=== PATIENT | male | born 1995 | race Caucasian/White ===

== ENCOUNTER 2018-07-26 04:08 | Emergency (ER) | payer SELFPAY ==
[~2018-07-26] VITALS: Ht 172.7 cm; Wt 104.3 kg
--- NOTE | 2018-07-26 04:27 | ED General ---
General Stated Complaint: INTOXICATED Source of Information: Patient Exam Limitations: No Limitations (PIERCE GARCIA MD) History of Present Illness Date Seen by Provider: Jul 26, 2018 Time Seen by Provider: 04:10 Initial Comments Here by EMS with report of being intoxicated. Patient admits to drinking quite a bit tonight at the bar. Apparently he had enough and decided to go outside. He fell asleep outside. He was found by some people who work morning to take him home but he couldn't tell them where he lived. Patient is actually from [place], [place] and knows the address to his house they are. He admits to drinking and states that he did not get injured in is not hurting anywhere but is intoxicated. Apparently EMS was called and police requested transport for evaluation. He denies any complaints. He has his phone with him that needs to be charged and states that he can call a friend when his phone works. Denies any pain or other concerns currently. Timing/Duration: 1 Hour Severity: Moderate Associated Systoms: No Nausea/Vomiting, No Shortness of Air, No Weakness; Other (intoxicated) (PIERCE GARCIA MD) Allergies and Home Medications Allergies Coded Allergies: Iodine and Iodide Containing Produc (Verified Allergy, Unknown, 07/26/18) Patient Home Medication List Home Medication List Reviewed: Yes (PIERCE GARCIA MD) Review of Systems Review of Systems Constitutional: see HPI; No chills, No fever, No weakness EENTM: no symptoms reported Respiratory: no symptoms reported Cardiovascular: no symptoms reported Gastrointestinal: no symptoms reported Musculoskeletal: No back pain, No muscle pain, No neck pain Psychiatric/Neurological: Denies Headache, Denies Numbness, Denies Weakness ( PIERCE GARCIA MD) Past Aznnsdu-Bwvcqa-Nkcybb Hx Past Med/Social Hx: Reviewed Nursing Past Med/Soc Hx (PIERCE GARCIA MD) Patient Social History Alcohol Use: Occasionally Uses Type Used: Smokeless Tobacco Recent Foreign Travel: No Contact w/Someone Who Travel: No (PIERCE GARCIA MD) Past Medical History Surgeries: Yes Abdominal (hernia repair) Respiratory: No Cardiac: No Neurological: No Genitourinary: No Gastrointestinal: Yes Abdominal Hernia Musculoskeletal: No (PIERCE GARCIA MD) Family Medical History Reviewed Nursing Family Hx (PIERCE GARCIA MD) Physical Exam Vital Signs Vital Signs - First Documented 07/26/18 04:08 Temp 98.0 Pulse 110 Resp 20 B/P (MAP) 144/104 (117) Pulse Ox 100 O2 Delivery Room Air (BRAXTON MORELAND) Vital Signs Capillary Refill : (PIERCE GARCIA MD) Height, Weight, BMI Height: '" Weight: lbs. oz. kg; BMI Method: General Appearance: No Apparent Distress, WD/WN HEENT: PERRL/EOMI, Pharynx Normal, Other (no head injury, abrasions or ecchymosis noted to any part of the head or face.) Neck: Full Range of Motion, Normal Inspection, Non Tender, Supple Respiratory: Lungs Clear, Normal Breath Sounds Cardiovascular: Regular Rate, Rhythm, No Murmur Gastrointestinal: Non Tender, Soft Extremity: Normal Range of Motion, Non Tender Neurologic/Psychiatric: Alert, Oriented x3, Other (slurred speech but answers questions appropriately.) Skin: Normal Color, Warm/Dry (PIERCE GARCIA MD) Progress/Results/Core Measures Suspected Sepsis SIRS Temperature: Pulse: Respiratory Rate: Blood Pressure / Mean: (PIERCE GARCIA MD) Results/Orders Vital Signs/I&O 07/26/18 04:08 Temp 98.0 Pulse 110 Resp 20 B/P (MAP) 144/104 (117) Pulse Ox 100 O2 Delivery Room Air (BRAXTON MORELAND) Vital Signs/I&O Capillary Refill : (PIERCE GARCIA MD) Progress Note : Progress Note Seen and evaluated. No obvious injuries noted. Patient admits to alcohol use tonight and intoxication but denies drugs. Otherwise acting appropriate. We will monitor him and charged his phone to see if we can get a friend called to pick him up. Patient agrees to the plan. 0600: Resting peacefully. Patient awakes to verbal. Still awaiting transportation (PIERCE GARCIA MD) Progress Note : Time: 07:52 Progress Note I saw and examined the patient. His history given is consistent with a history and physical exam recorded by Dr. Garcia. I agree with the previous note. Patient is awake enough is alert enough to talk to me answer all my questions remembers where he was at last night he was doing. He denies any physical injury or pain now. He says he was waiting for us to give him to go ahead and call for a ride and so we are going him call for a ride home to sleep this off. (BRAXTON MORELAND) Departure Impression Primary Impression: Alcohol intoxication Qualified Codes: F10.920 - Alcohol use, unspecified with intoxication, uncomplicated Disposition: 01 HOME, SELF-CARE Condition: Improved Departure-Patient Inst. Decision time for Depature: 06:06 (PIERCE GARCIA MD) Decision time for Depature: 08:18 (BRAXTON MORELAND) Patient Instructions: ALCOHOL AND SUBSTANCE ABUSE, Effects of Alcohol on Your Health Add. Discharge Instructions: Drink plenty of fluids and eat a normal diet. Follow-up with your Dr. in a few days for recheck as needed. You should avoid alcohol use. Return for worse pain, fever, vomiting, weakness, breathing problems or other concerns as needed. PIERCE GARCIA MD Jul 26, 2018 04:27 BRAXTON MORELAND Jul 26, 2018 07:57
[2018-07-26 08:24] VITALS: BP 107/68
== END 2018-07-26 08:27 | disposition home or self-care (01) ==
LOC: ER 04:09
DX: F10.129 Alcohol abuse with intoxication, unspecified (principal); Z91.041 Radiographic dye allergy status; Z98.890 Other specified postprocedural states
CPT/HCPCS: 99283

== ENCOUNTER 2019-01-17 03:22 | Emergency (ER) | payer BC, OTHER ==
[~2019-01-17] VITALS: Ht 172.7 cm; Wt 108.9 kg
--- NOTE | 2019-01-17 04:18 | ED General ---
General Stated Complaint: ADDITIONAL TESTING,HERNIA Source of Information: Patient, Police Exam Limitations: No Limitations History of Present Illness Date Seen by Provider: Jan 17, 2019 Time Seen by Provider: 03:51 Initial Comments The patient presents to ER by police with chief complaint that he was picked up a DUI and requested to have a blood alcohol level test drawn. He's not having any pain nausea fevers chills. His last drink was sometime around 1:00. He said he had 4 beers before going to the bar and 2-3 more beers while he was at the bar. He drinks regularly. He does not smoke but he does use DIP. He denies any recreational drugs. He is not having any particular symptoms just wants confirmatory lab to prove his blood level. Allergies and Home Medications Allergies Coded Allergies: Iodine and Iodide Containing Produc (Verified Allergy, Unknown, 07/26/18) Patient Home Medication List Home Medication List Reviewed: Yes Review of Systems Review of Systems Constitutional: No chills, No fever EENTM: No ear discharge, No hearing loss Respiratory: No cough, No orthopnea Cardiovascular: No chest pain, No palpitations Gastrointestinal: No abdominal pain, No constipation Past Neprmtf-Vkwkcg-Qxwxqw Hx Patient Social History Alcohol Use: Regular Use Recreational Drug Use: No Smoking Status: Never a Smoker Type Used: Smokeless Tobacco Recent Foreign Travel: No Contact w/Someone Who Travel: No Recent Hopitalizations: No Immunizations Up To Date Tetanus Booster (TDap): Unknown PED Vaccines UTD: Yes Seasonal Allergies Seasonal Allergies: Yes Past Medical History Surgeries: Yes Abdominal Respiratory: No Cardiac: No Neurological: No Genitourinary: No Gastrointestinal: Yes Abdominal Hernia Musculoskeletal: No Endocrine: No HEENT: No Cancer: No Psychosocial: No Blood Disorders: No Physical Exam Vital Signs Capillary Refill : Height, Weight, BMI Height: 5'8.00" Weight: 230lbs. oz. [id number]; BMI Method:Stated General Appearance: No Apparent Distress, WD/WN Eyes: Bilateral Eye Normal Inspection, Bilateral Eye PERRL, Bilateral Eye EOMI HEENT: Pharynx Normal, Moist Mucous Membranes Respiratory: No Accessory Muscle Use, No Respiratory Distress Cardiovascular: Regular Rate, Rhythm, No Edema Neurologic/Psychiatric: Alert, Oriented x3, No Motor/Sensory Deficits Progress/Results/Core Measures Suspected Sepsis SIRS Temperature: Pulse: Respiratory Rate: Blood Pressure / Mean: Results/Orders Lab Results Laboratory Tests Test 01/17/19 04:13 Range/Units Serum Alcohol 210 H <10 MG/DL My Orders Orders - BRAXTON MORELAND Alcohol (01/17/19 03:59) Vital Signs/I&O Capillary Refill : Progress Note : Time: 04:21 Progress Note Blood alcohol level. We explained to him that there is no legal ramifications to the lab that we draw as is no chain of custody and he still wants the test done. He does not want anything else done tonight. He does not require anything further. Departure Impression Primary Impression: Blood alcohol level of 200-239 mg/100 ml Disposition: 01 HOME, SELF-CARE Condition: Stable Departure-Patient Inst. Decision time for Depature: 04:49 Referrals: NO,LOCAL PHYSICIAN (PCP/Family) Primary Care Physician Patient Instructions: Alcohol Level Add. Discharge Instructions: Drink plenty of fluids use Tylenol or ibuprofen as necessary for headache. BRAXTON MORELAND Jan 17, 2019 04:18
[2019-01-17 04:57] VITALS: BP 140/85
== END 2019-01-17 04:57 | disposition home or self-care (01) ==
LOC: EDUNIT# 03:22 → ER 03:25
DX: F10.10 Alcohol abuse, uncomplicated (principal); Z91.041 Radiographic dye allergy status; Z98.890 Other specified postprocedural states; Y90.7 Blood alcohol level of 200-239 mg/100 ml
CPT/HCPCS: 36415; 80320; 99283